=== PATIENT | male | born 2000 | race Caucasian/White ===

== ENCOUNTER 2020-12-07 07:54 | Observation (INO) ==
[2020-12-07 08:19] LABS: Appearance Urine Clear (Clear); Bacteria Urine Automated Negative (Negative); Bilirubin Urine Negative (Negative); Blood Urine 3+ (Negative); Color Urine Orange; Glucose Urine UA Negative (Negative); Ketones Urine Trace (Negative); Leukocyte Esterase Urine 1+ (Negative); Nitrite Urine Negative (Negative); Protein Urine 1+ (Negative); RBC Urine Automated >30 /hpf (0-4); Specific Gravity Urine 1.023 (1.000-1.030); Urobilinogen Urine Negative (Negative); pH Urine 5.5 (4.5-7.5)
[2020-12-07] MEDS ORDERED: TAMSULOSIN HCL 0.4 MG CAP PO ONE (08:32)
[2020-12-07] MEDS ORDERED: HYDROmorphone INJ 0.5 MG/0.5 ML SYR IV STA ×2 (08:32→08:58)
[2020-12-07] MEDS ORDERED: SODIUM CHLORIDE 0.9% 1000ML 1,000 ML IV ONE (08:32)
[2020-12-07] MEDS ORDERED: KETOROLAC TROMETHAMINE 15 MG/ML VIAL IV ONE (08:32)
[2020-12-07] MEDS ORDERED: ONDANSETRON INJ 2 MG/ML 2 ML VIAL IV STA (08:32)
[2020-12-07 08:43] LABS: Hematocrit (blood only) 46.5 % (42-52); Hemoglobin 16.9 g/dL (14.0-18.0); Mean Corpuscular Hemoglobin 32.4 pg (25-34); Mean Corpuscular Hgb Conc 36.3 g/dL (32-36); Mean Corpuscular Volume 89.3 fL (80-100); Mean Platelet Volume 9.1 fL (7.4-10.4); Platelet Count 310 K/uL (130-400); RDW Coefficient of Variation 12.3 % (11.5-14.5); RDW Standard Deviation 39.9 fL (36.4-46.3); Red Blood Count 5.21 M/uL (4.7-6.1); White Blood Count 5.97 K/uL (4.8-10.8)
[2020-12-07 08:59] LABS: BUN Creatinine Ratio 15.1 (10-20); Calcium 9.8 mg/dl (8.5-10.1); Creatinine Clr Calc Pharmacy 126.6 ml/min; Est GFR (Non-African American) 124.2 ml/min; Potassium 3.9 mmol/L (3.5-5.1)
--- NOTE | 2020-12-07 09:11 | Emergency Department Note ---
History of Present Illness General Chief complaint: Kidney Stone Stated complaint: LEFT SIDED KIDNEY Time Seen by Provider: 12/07/20 08:27 Source: patient Mode of arrival: ambulatory Limitations: no limitations History of Present Illness Provider complaint: Left flank pain Onset (ago): hour(s) 2 Location: back Radiation: flank Severity: severe Maximum Pain Intensity: 10 Quality: + stabbing Associated symptoms: + nausea/vomiting Patient is a 19 yo male with PMHx of nephrolithiasis who presents to the ED with complaint of severe back/flank pain. Patient was evaluated in the ED 3 days ago and diagnosed with a "mild left-sided hydroureteronephrosis secondary to an obstructing 4 mm calculus of the distal left ureter." He was discharged home wit h oxy 5mg po prn for pain. Patient states that he was managing the pain fairly well but this AM at 0700 he awoke abruptly from sleep with severe back pain and left flank pain. Pain is rated at a 10/10 and described as a "knife stabbing me in the back." He has had associated nausea and vomiting since 0700 with current episode of pain. Difficulty with urination and + hematuria. Patient tried to take 10mg oxycodone but immediately had emesis. Has not been able to control the pain. He denies fever, chills, CP, SOB. States that this is reminiscent of prior hx of kidney stones; previously required hospitalization at [facility]-3 years ago for stone; has had total of 4-5 stones in lifetime, 2 of which (including current episode) have required ED/hospital level care. Home Medications Medication Instructions Recorded Confirmed Type omeprazole 40 mg capsule,delayed 40 mg PO QAM 12/04/20 12/07/20 History release ondansetron HCl 4 mg tablet 4 mg PO Q6H PRN 5 Days #20 tab 12/08/20 Rx (Zofran) oxycodone 5 mg tablet 5 mg PO Q6H PRN #10 tab 12/08/20 Rx tamsulosin 0.4 mg capsule 0.4 mg PO QAM 30 Days #30 cap 12/08/20 Rx Allergies Allergy/AdvReac Type Severity Reaction Status Date / Time No Known Allergies Allergy Unverified 12/07/20 10:33 Past Med/Surg History Medical History Kidney calculus Surgical History No pertinent past surgical history Social History Smoking Status: Never smoker Hx Alcohol Use: No Hx Substance Use: No Preferred Language: Georgian Communication Ability: Effective Business Administrator Required: No Beliefs That Will Affect Care: None marital status: Single Current Living Situation: Other Current Living Situation Comment: room mates current occupational status: student Feels Safe at Home: Yes Assistive Devices: None Review of Systems See HPI for pertinent positives & negatives. and A total of 10 systems reviewed and were otherwise negative Constitutional: no fever and no chills Eyes: no problem reported Ear, Nose, Mouth, Throat: no problem reported Respiratory: no cough and no dyspnea Cardiovascular: no chest pain Gastrointestinal: + abdominal pain, + nausea and + vomiting Genitourinary (Male): + dysuria, + hematuria and + flank pain Musculoskeletal: no problem reported Integumentary: no problem reported Neurologic: no syncope and no headache(s) Psychiatric: no problem reported Physical Exam Vital Signs Vital Signs - 24 hr 12/07/20 08:04 12/07/20 11:11 Temperature 37.0 C Temperature Source Oral Pulse Rate 114 H 69 Pulse Rate from SpO2 Sensor 70 Respiratory Rate 16 22 Blood Pressure 134/97 143/100 H Blood Pressure Mean 109 114 Pulse Oximetry 93 98 Oxygen Delivery Method Room Air Room Air Sepsis Recent Fever Within 48 Hours No Sepsis New/Unexplained Change in Mental Status No Sepsis Action Taken by Nursing No Action Required GENERAL: Moderate distress secondary to pain; writhing in bed unable to get in comfortable position. Well developed and well nourished. Vital signs reviewed as above. EYES: EOMI. Anicteric sclerae. HENT: Moist mucous membranes. Hearing intact bilaterally. RESPIRATORY: Clear to auscultation bilaterally. No wheezing, rales, or rhonchi. CARDIOVASCULAR: Tachycardic. Regular rhythm. No murmurs. ABDOMEN: Soft. Diffuse tenderness most prominent in LLQ. + left flank pain/CVA tenderness to palpation. Normal bowel sounds. EXTREMITIES: No edema. Non-tender. SKIN: Warm, dry. No rashes or lesions. NEUROLOGIC: A/O x3. No focal neurological deficits. PSYCHIATRIC: Cooperative. Appropriate mood and affect. Course Administered Medications Discontinued Medications Hydromorphone HCl (Hydromorphone Inj 0.5 Mg/0.5 Ml Syr) 0.5 mg IV NOW STA Stop: 12/07/20 08:33 Last Admin: 12/07/20 08:38 Dose: 0.5 mg Documented by: [id number] Hydromorphone HCl (Hydromorphone Inj 0.5 Mg/0.5 Ml Syr) 0.5 mg IV NOW STA Stop: 12/07/20 08:59 Last Admin: 12/07/20 09:04 Dose: 0.5 mg Documented by: [id number] Sodium Chloride (Nss 1000ml) 1,000 mls @ 999 mls/hr IV .Q1H1M ONE Stop: 12/07/20 09:32 Last Infusion: 12/07/20 09:42 Dose: 0 mls/hr Documented by: [id number] Admin: 12/07/20 08:41 Dose: 999 mls/hr Documented by: [id number] Lactated Ringer's (Lr) 1,000 mls @ 125 mls/hr IV .Q8H SIMON Stop: 01/06/21 11:59 Last Admin: 12/08/20 11:15 Dose: 125 mls/hr Documented by: [id number] Infusion: 12/08/20 11:15 Dose: 125 mls/hr Documented by: [id number] Infusion: 12/08/20 06:17 Dose: 125 mls/hr Documented by: [id number] Admin: 12/08/20 01:50 Dose: 125 mls/hr Documented by: [id number] Infusion: 12/08/20 01:21 Dose: 125 mls/hr Documented by: [id number] Admin: 12/07/20 17:21 Dose: 125 mls/hr Documented by: [id number] Infusion: 12/07/20 17:21 Dose: 125 mls/hr Documented by: [id number] Admin: 12/07/20 12:01 Dose: 125 mls/hr Documented by: [id number] Ketorolac Tromethamine (Ketorolac Tromethamine 15 Mg/Ml Vial) 10 mg IV NOW ONE Stop: 12/07/20 08:33 Last Admin: 12/07/20 08:39 Dose: 10 mg Documented by: [id number] Ketorolac Tromethamine (Ketorolac 30 Mg/Ml Vial) 30 mg IV Q6H PRN PRN Reason: Moderate Pain Stop: 12/12/20 13:45 Last Admin: 12/08/20 09:18 Dose: 30 mg Documented by: [id number] Admin: 12/08/20 02:02 Dose: 30 mg Documented by: [id number] Admin: 12/07/20 14:56 Dose: 30 mg Documented by: [id number] Morphine Sulfate (Morphine Sulfate 4 Mg/Ml 1 Ml Carp\\Vial) 4 mg IV NOW STA Stop: 12/07/20 09:39 Last Admin: 12/07/20 09:54 Dose: 4 mg Documented by: [id number] Morphine Sulfate (Morphine Sulfate 2 Mg/Ml Carp) 2 mg IV NOW STA Stop: 12/07/20 11:51 Last Admin: 12/07/20 12:01 Dose: 2 mg Documented by: [id number] Morphine Sulfate (Morphine Sulfate 4 Mg/Ml 1 Ml Carp\\Vial) 4 mg IV Q4H PRN PRN Reason: severe pain Stop: 12/21/20 13:45 Last Admin: 12/08/20 06:15 Dose: 4 mg Documented by: [id number] Admin: 12/08/20 02:25 Dose: 4 mg Documented by: [id number] Admin: 12/07/20 13:58 Dose: 4 mg Documented by: [id number] Ondansetron HCl (Ondansetron Inj 2 Mg/Ml 2 Ml Vial) 4 mg IV NOW STA Stop: 12/07/20 08:33 Last Admin: 12/07/20 08:38 Dose: 4 mg Documented by: [id number] Ondansetron HCl (Ondansetron Inj 2 Mg/Ml 2 Ml Vial) 4 mg IV Q6H PRN PRN Reason: Nausea Stop: 01/06/21 13:45 Last Admin: 12/07/20 14:56 Dose: 4 mg Documented by: [id number] Pantoprazole Sodium (Pantoprazole 40 Mg Tab) [facility] [place] Stop: 01/07/21 08:59 Last Admin: 12/08/20 02:28 Dose: 40 mg Documented by: [id number] Tamsulosin HCl (Tamsulosin Hcl 0.4 Mg Cap) 0.4 mg PO NOW ONE Stop: 12/07/20 08:33 Last Admin: 12/07/20 08:43 Dose: 0.4 mg Documented by: [id number] Tamsulosin HCl (Tamsulosin Hcl 0.4 Mg Cap) 0.4 mg PO QAM [facility] Stop: 01/07/21 08:59 Last Admin: 12/08/20 09:18 Dose: 0.4 mg Documented by: [id number] Medical Decision Making Differential Diagnosis Renal colic, UTI, appendicitis, diverticulitis, mesenteric ischemia, aortic pathology, infections, inflammatory bowel disease, PUD, biliary pathology, as well as other pathologies. Medical Records Attestation: I reviewed the patient's medical records. Home Medications Current Medication List: was personally reviewed by me Laboratory Data Attestation: I reviewed the patient's lab results. Result diagrams: 12/08/20 07:08 12/08/20 07:08 Lab Results 12/07/20 12/07/20 12/07/20 Range/Units 08:07 08:20 08:20 WBC 5.97 (4.8-10.8) K/uL RBC 5.21 (4.7-6.1) M/uL Hgb 16.9 (14.0-18.0) g/dL Hct 46.5 (42-52) % MCV 89.3 (80-100) fL MCH 32.4 (25-34) pg MCHC 36.3 H (32-36) g/dL RDW Std Deviation 39.9 (36.4-46.3) fL RDW Coeff of Theresa 12.3 (11.5-14.5) % Plt Count 310 (130-400) K/uL MPV 9.1 (7.4-10.4) fL Sodium 140 (136-145) mmol/L Potassium 3.9 (3.5-5.1) mmol/L Chloride 104 (98-107) mmol/L Carbon Dioxide 26 (21-32) mmol/L Anion Gap 10.0 (3-11) BUN 13 (7-18) mg/dl Creatinine 0.87 (0.6-1.4) mg/dl Est Cr Clr Drug Dosing 126.6 ml/min Est GFR ( Amer) 144.0 ml/min Est GFR (Non-Af Amer) 124.2 ml/min BUN/Creatinine Ratio 15.1 (10-20) Glucose 108 H (70-99) mg/dl Calcium 9.8 (8.5-10.1) mg/dl Urine Color [place] Urine Appearance Clear (Clear) Urine pH 5.5 (4.5-7.5) Ur Specific [place] 1.023 (1.000-1.030) Urine Protein 1+ H (Negative) Urine Glucose (UA) Negative (Negative) Urine Ketones Trace H (Negative) Urine Blood 3+ H (Negative) Urine Nitrite Negative (Negative) Urine Bilirubin Negative (Negative) Urine Urobilinogen Negative (Negative) Ur Leukocyte Esterase 1+ H (Negative) Urine WBC (Auto) 1-5 (0-5) /hpf Urine RBC (Auto) >30 H (0-4) /hpf U Hyaline Cast (Auto) 1-5 (0-5) /lpf U Epithel Cells (Auto) 10-20 H (0-5) /lpf Urine Bacteria (Auto) Negative (Negative) COVID-19 Eval Order SARS-CoV-2 (PCR) (Negative) 12/07/20 12/07/20 Range/Units 11:27 11:27 WBC (4.8-10.8) K/uL RBC (4.7-6.1) M/uL Hgb (14.0-18.0) g/dL Hct (42-52) % MCV (80-100) fL MCH (25-34) pg MCHC (32-36) g/dL RDW Std Deviation (36.4-46.3) fL RDW Coeff of Theresa (11.5-14.5) % Plt Count (130-400) K/uL MPV (7.4-10.4) fL Sodium (136-145) mmol/L Potassium (3.5-5.1) mmol/L Chloride (98-107) mmol/L Carbon Dioxide (21-32) mmol/L Anion Gap (3-11) BUN (7-18) mg/dl Creatinine (0.6-1.4) mg/dl Est Cr Clr Drug Dosing ml/min Est GFR ( Amer) ml/min Est GFR (Non-Af Amer) ml/min BUN/Creatinine Ratio (10-20) Glucose (70-99) mg/dl Calcium (8.5-10.1) mg/dl Urine Color Urine Appearance (Clear) Urine pH (4.5-7.5) Ur Specific [place] (1.000-1.030) Urine Protein (Negative) Urine Glucose (UA) (Negative) Urine Ketones (Negative) Urine Blood (Negative) Urine Nitrite (Negative) Urine Bilirubin (Negative) Urine Urobilinogen (Negative) Ur Leukocyte Esterase (Negative) Urine WBC (Auto) (0-5) /hpf Urine RBC (Auto) (0-4) /hpf U Hyaline Cast (Auto) (0-5) /lpf U Epithel Cells (Auto) (0-5) /lpf Urine Bacteria (Auto) (Negative) COVID-19 Eval Order Covid19 at [facility] SARS-CoV-2 (PCR) NEGATIVE (Negative) Imaging Data Radiologist's Impression: KUB X-Ray 12/07/20 08:32 KUB CLINICAL HISTORY: Kidney stone. COMPARISON STUDY: CT of the abdomen and pelvis December 04, 2020. FINDINGS: The 4 mm distal left ureteral calculus shown on CT of December 04, 2020 is not visualized on this exam although may be occult by radiography. No urinary calculi are identified. There is no evidence for a bowel obstruction. IMPRESSION: Nonvisualization of the 4 mm distal left ureteral calculus shown on prior CT. However, this calculus could be occult by radiography. ACT 112: Negative or not required by law. Electronically signed by: Gee Fleming M.D. 12/07/2020 9:22 AM Renal Ultrasound 12/07/20 09:38 ULTRASOUND KIDNEYS AND BLADDER CLINICAL HISTORY: Left flank pain. Known ureteral stone. COMPARISON STUDY: Abdominal CT dated 12/04/2020. TECHNIQUE: Real-time, grayscale, and color flow sonography of the kidneys and bladder is performed. Images are reviewed in the transverse and longitudinal planes. FINDINGS: Kidneys: The kidneys are normal in size and echotexture. The right kidney measures 1.6 cm in length and the left kidney measures 11.5 cm in length. There is mild left hydroureteronephrosis. No hydronephrosis is seen on the right. No shadowing renal calculi are identified in either kidney. There is no sonographic evidence of contour deforming renal mass lesion. No perinephric fluid is identified. Bladder: The partially distended bladder is normal in appearance. Only the right ureteral jet was seen. A 4 mm calculus is seen just above the left vesicoure teral junction. IMPRESSION: 1. There is mild left hydroureteronephrosis secondary to a 4 mm calculus just above the vesicoureteral junction. 2. No hydronephrosis is seen on the right. ACT 112: Negative or not required by law. Electronically signed by: Rio Smith M.D. 12/07/2020 10:43 AM Blood Pressure Blood Pressure Findings: Normal blood pressure Blood Pressure Disposition: did not require urgent referral MDM Narrative This patient was evaluated and appeared to be in significant discomfort. IV access was obtained and laboratory work was drawn. Patient was hydrated with normal saline solution, given IV Dilaudid and Zofran for his discomfort. CT imaging of the abdomen and pelvis was performed and reveals a 4 mm distal ureteral calculus. There is mild hydronephrosis. There is no evidence of UTI. Patient's pain was uncontrolled with 2 doses of IV Dilaudid and he requested morphine. This did help control the patient's pain a bit better. IV Toradol was administered as well as Flomax. Upon my evaluation of the patient he was resting reasonably comfortably. Consultation with hospitalist service and urology was placed. Patient will be evaluated for further management. He was made aware of the plan and agreed as this is the patient's second visit and the stone has not moved on KUB. Impression & Plan Renal colic on left side, Ureterolithiasis Discharge Plan Visit Data Chief Complaint: Kidney Stone Stated Complaint: LEFT SIDED KIDNEY ED Provider: Dior Lainez ED Midlevel Provider: Torrie Soni Discharge Problem: Renal colic on left side, Ureterolithiasis Patient Disposition: Admitted As Inpatient Condition: Fair Discharge Instructions Interventions: ED Discharge Assessment Last Done: 12/07/20 13:50 Resident Activity Tracking Resident Involvement: Resident Care Provided Care Provided: Pediatric Care ED
--- NOTE | 2020-12-07 09:23 | XRay Report ---
KUB CLINICAL HISTORY: Kidney stone. COMPARISON STUDY: CT of the abdomen and pelvis December 04, 2020. FINDINGS: The 4 mm distal left ureteral calculus shown on CT of December 04, 2020 is not visualized on this exam although may be occult by radiography. No urinary calculi are identified. There is no evide nce for a bowel obstruction. IMPRESSION: Nonvisualization of the 4 mm distal left ureteral calculus shown on prior CT. However, t his calculus could be occult by radiography. ACT 112: Negative or not required by law. Electronically signed by: Gee Fleming M.D. 12/07/2020 9:22 AM
[2020-12-07] MEDS ORDERED: MoRPHine SULFATE 4 MG/ML 1 ML CARP\\VIAL IV STA (09:38)
--- NOTE | 2020-12-07 10:45 | Ultrasound Report ---
ULTRASOUND KIDNEYS AND BLADDER CLINICAL HISTORY: Left flank pain. Known ureteral stone. COMPARISON STUDY: Abdominal CT dated 12/04/2020. TECHNIQUE: Real-time, grayscale, and color flow sonography of the kidneys and bladder is performed. I mages are reviewed in the transverse and longitudinal planes. FINDINGS: Kidneys: The kidneys are normal in size and echotexture. The right kidney measures 1.6 cm in length a nd the left kidney measures 11.5 cm in length. There is mild left hydroureteronephrosis. No hydroneph rosis is seen on the right. No shadowing renal calculi are identified in either kidney. There is no s onographic evidence of contour deforming renal mass lesion. No perinephric fluid is identified. Bladder: The partially distended bladder is normal in appearance. Only the right ureteral jet was see n. A 4 mm calculus is seen just above the left vesicoureteral junction. IMPRESSION: 1. There is mild left hydroureteronephrosis secondary to a 4 mm calculus just above the vesicouretera l junction. 2. No hydronephrosis is seen on the right. ACT 112: Negative or not required by law. Electronically signed by: Rio Smith M.D. 12/07/2020 10:43 AM
[2020-12-07] MEDS ORDERED: MoRPHine SULFATE 2 MG/ML CARP IV STA (11:50)
[2020-12-07] MEDS: LACTATED RINGER'S 1,000 ML IV SCH ×2 (12:01→17:21)
--- NOTE | 2020-12-07 12:16 | History & Physical Report ---
Date of Service December 07, 2020 Assessment & Plan (1) Ureterolithiasis: (2) Renal colic on left side: Plan: 19 M with hx of nephrolithiasis who initially presented to ED on 12/04 and dx with L distal ureteral stone. Presents today with severe pain and inability to manage symptoms at home. He is a college student. No signs of SIRS/SEPSIS or DEMETRICE. US reveals: here is mild left hydroureteronephrosis secondary to a 4 mm calculus just above the vesicoureteral junction. admit to med/surg remain NPO until seen and eval by urology consult urology flomax 0.4mg daily IVF LR @ 125cc/hr IV morphine 4mg severe pain; IV toradol 30mg q6h moderate pain strain all urine DVT ppx: none Dispo:med surg PCP: none, Student FULL CODE Pt was seen and examined in collaboration with Dr. Samuel, please see addendum History of Present Illness Chief Complaint: L sided low back pain. Primary Care Provider: NO PCP This is a 19-year-old male who has significant past medical history of nephrolithiasis and is a college student at [employer] who presents to ED secondary to left-sided low back pain. Of significance patient was seen in ED on 12/04/2020 due to sharp left flank pain. He underwent CT abdomen pelvis which revealed mild left hydronephrosis and hydroureter down to 3 mm calculus in the distal left ureter 1 cm from the ureterovesicular junction. His pain was controlled and recommended to follow-up if symptoms do not improve. He was discharged home with oral pain medication. He states over the last 2 days his symptoms have waxed and waned. However, when he woke up this morning he had severe left flank and low back pain. He describes it as, "being stabbed by a knife." His pain is currently greater than a 10 out of 10, nothing makes it better and nothing makes it worse, is associated with decreased urination and nausea. On initial presentation he had hematuria, but he states this is since resolved. He now is no longer, "peeing as much." He has tried oral oxycodone without improvement. He denies any fever, chills, sweats, lightheadedness, dizziness, chest pain, shortness of breath, cough, URI symptoms, emesis, dysuria, increased urinary urgency, melena or hematochezia. He does have prior history of kidney stone that did not require surgical intervention. In ED patient remained hemodynamically stable. His CBC and CMP was generally unremarkable. His urinalysis was consistent with blood. Renal ultrasound confirms a 4 mm calculus just above the vesiculoureteral junction with mild left hydronephrosis. Allergies Allergy/AdvReac Type Severity Reaction Status Date / Time No Known Allergies Allergy Unverified 12/07/20 10:33 Home Medications Medication Instructions Recorded Confirmed Type omeprazole 40 mg capsule,delayed 40 mg PO QAM 12/04/20 12/07/20 History release Past Med/Surg History Medical History Kidney calculus Surgical History No pertinent past surgical history Social History Smoking Status: Never smoker Hx Alcohol Use: No Preferred Language: Turkmen marital status: Single current occupational status: student Feels Safe at Home: Yes Review of Systems Review of Systems: All systems reviewed & are unremarkable except as noted in HPI & below Physical Exam Physical Exam: Constitutional: WD/WN, M, +acute distress, +Pain, tearful, vitals as above, NAD, sitting up in bed Head: Normocephalic, Atraumatic Eyes: PERRL, conjunctivae normal, anicteric sclerae ENMT: external ear and nose normal, oropharynx normal Neck: trachea midline, no thyromegaly normal visual inspection Respiratory: normal respiratory effort, lungs clear to auscultation, no wheeze, rales, rhonchi. Normal insp/exp effort, no accessory muscle use Cardiovascular: RRR, no murmur, no edema Vessels: no JVD or carotid bruit Chest: normal inspection of chest Abdomen: normal bowel sounds, soft, nontender, no hepatosplenomegaly +cva tenderness, L Musculoskeletal: no cyanosis or clubbing, extremities motor strength 5/5 Skin: no rashes, warm and dry normal turgor Neurologic: PERRL, EOMI, accommodation nl, no face palsy, no dysarthria CN's II-XI intact bilaterally and moves all extremities Psychiatric: A+Ox3, euthymic affect Lymphatic: no cervical or axillary lymphadenopathy : deferred Results & Data Results & Data ([facility]) Vital Signs (Past 12 Hours) Vital Signs Temp Pulse Resp BP Pulse Ox 12/07/20 11:11 69 22 143/100 H 98 12/07/20 08:04 37.0 C 114 H 16 134/97 93 Diagnostic Findings KUB X-Ray 12/07/20 08:32 KUB CLINICAL HISTORY: Kidney stone. COMPARISON STUDY: CT of the abdomen and pelvis December 04, 2020. FINDINGS: The 4 mm distal left ureteral calculus shown on CT of December 04, 2020 is not visualized on this exam although may be occult by radiography. No urinary calculi are identified. There is no evidence for a bowel obstruction. IMPRESSION: Nonvisualization of the 4 mm distal left ureteral calculus shown on prior CT. However, this calculus could be occult by radiography. ACT 112: Negative or not required by law. Electronically signed by: Gee Fleming M.D. 12/07/2020 9:22 AM Renal Ultrasound 12/07/20 09:38 ULTRASOUND KIDNEYS AND BLADDER CLINICAL HISTORY: Left flank pain. Known ureteral stone. COMPARISON STUDY: Abdominal CT dated 12/04/2020. TECHNIQUE: Real-time, grayscale, and color flow sonography of the kidneys and bladder is performed. Images are reviewed in the transverse and longitudinal planes. FINDINGS: Kidneys: The kidneys are normal in size and echotexture. The right kidney measures 1.6 cm in length and the left kidney measures 11.5 cm in length. There is mild left hydroureteronephrosis. No hydronephrosis is seen on the right. No shadowing renal calculi are identified in either kidney. There is no sonographic evidence of contour deforming renal mass lesion. No perinephric fluid is identified. Bladder: The partially distended bladder is normal in appearance. Only the right ureteral jet was seen. A 4 mm calculus is seen just above the left vesicoureteral junction. IMPRESSION: 1. There is mild left hydroureteronephrosis secondary to a 4 mm calculus just above the vesicoureteral junction. 2. No hydronephrosis is seen on the right. ACT 112: Negative or not required by law. Electronically signed by: Rio Smith M.D. 12/07/2020 10:43 AM Medications Administered Medication List Lactated Ringer's (Lr) 1,000 mls @ 125 mls/hr IV .Q8H SIMON Stop: 01/06/21 11:59 Last Admin: 12/07/20 12:01 Dose: 125 mls/hr Documented by: [id number] Discontinued Medications Hydromorphone HCl (Hydromorphone Inj 0.5 Mg/0.5 Ml Syr) 0.5 mg IV NOW STA Stop: 12/07/20 08:33 Last Admin: 12/07/20 08:38 Dose: 0.5 mg Documented by: [id number] Hydromorphone HCl (Hydromorphone Inj 0.5 Mg/0.5 Ml Syr) 0.5 mg IV NOW STA Stop: 12/07/20 08:59 Last Admin: 12/07/20 09:04 Dose: 0.5 mg Documented by: [id number] Sodium Chloride (Nss 1000ml) 1,000 mls @ 999 mls/hr IV .Q1H1M ONE Stop: 12/07/20 09:32 Last Infusion: 12/07/20 09:42 Dose: 0 mls/hr Documented by: [id number] Admin: 12/07/20 08:41 Dose: 999 mls/hr Documented by: [id number] Ketorolac Tromethamine (Ketorolac Tromethamine 15 Mg/Ml Vial) 10 mg IV NOW ONE Stop: 12/07/20 08:33 Last Admin: 12/07/20 08:39 Dose: 10 mg Documented by: [id number] Morphine Sulfate (Morphine Sulfate 4 Mg/Ml 1 Ml Carp\\Vial) 4 mg IV NOW STA Stop: 12/07/20 09:39 Last Admin: 12/07/20 09:54 Dose: 4 mg Documented by: [id number] Morphine Sulfate (Morphine Sulfate 2 Mg/Ml Carp) 2 mg IV NOW STA Stop: 12/07/20 11:51 Last Admin: 12/07/20 12:01 Dose: 2 mg Documented by: [id number] Ondansetron HCl (Ondansetron Inj 2 Mg/Ml 2 Ml Vial) 4 mg IV NOW STA Stop: 12/07/20 08:33 Last Admin: 12/07/20 08:38 Dose: 4 mg Documented by: [id number] Tamsulosin HCl (Tamsulosin Hcl 0.4 Mg Cap) 0.4 mg PO NOW ONE Stop: 12/07/20 08:33 Last Admin: 12/07/20 08:43 Dose: 0.4 mg Documented by: [id number] COVID-19 Results Results COVID-19 Adm Lab Results: RBC 5.21 M/uL (4.7-6.1) 12/07/20 WBC 5.97 K/uL (4.8-10.8) 12/07/20 Hgb 16.9 g/dL (14.0-18.0) 12/07/20 Hct 46.5 % (42-52) 12/07/20 Plt Count 310 K/uL (130-400) 12/07/20 Na 140 mmol/L (136-145) 12/07/20 K 3.9 mmol/L (3.5-5.1) 12/07/20 Cl 104 mmol/L (98-107) 12/07/20 CO2 26 mmol/L (21-32) 12/07/20 Anion Gap 10.0 (3-11) 12/07/20 BUN 13 mg/dl (7-18) 12/07/20 Creatinine 0.87 mg/dl (0.6-1.4) 12/07/20 BUN/Creatinine Ratio 15.1 (10-20) 12/07/20 Glucose Level 108 mg/dl (70-99) H 12/07/20 Ca 9.8 mg/dl (8.5-10.1) 12/07/20 COVID-19 PCR NEGATIVE (Negative) 12/07/20 Code Status & VTE Plan Code Status Full Code VTE Prophylaxis Plan VTE Prophylaxis will be ordered: No Supervising Physician Co-Signing Physician Notes Attending addendum The patient was seen and examined in medical floor He was admitted with left renal colic noted to have a 4 mg millimeters stone in the distal ureter with mild hydronephrosis Has been feeling a little better but he still has the pain On examination Acute distress with minimal pain Hemodynamically stable Chestclear to auscultate bilaterally HeartS1-S2 regular Abdomen-no tenderness in the renal angle, mildly tender in the left lower quadrant, bowel sound present Extremities-negative for any edema Admission labs, imaging studies reviewed Has 4 mm left distal ureter stone with mild hydronephrosis Appreciate urology input and recommendation Agree with assessment and plan as outlined above by ANA An DR
--- NOTE | 2020-12-07 12:55 | Urology Consultation ---
Date of Consultation December 07, 2020 Assessment & Plan (1) Ureterolithiasis: 19 year old male admitted with worsening left flank pain secondary to known 4 mm left distal ureteral calculus with mild hydronephrosis. - Afebrile, nontoxic, creatinine and WBC within normal limits - UA not suggestive of infection, no urine culture pending at this time - Imaging reviewed - 4 mm left distal ureteral calculus, mild hydronephrosis - Discussed options for stone management including trial of passage vs surgical intervention with URS-LL/stent while inpatient - Discusses option for outpatient ESWL though discussed that we are unable to visualize stone on today's KUB - Procedures, success rates, risks, benefits and clinical courses reviewed. - Ureteral stents were discussed as well as post-operative course and pain management - Patient elects trial of passage for now - Okay to have diet today and make NPO again at midnight - Strain all urine, send stone for analysis if he passes it - Continue hydration, Tamsulosin, supportive care and management per primary service Please consult our service urgently if patient develops fever >101F, intractable pain or nausea, as this will necessitate urgent surgical intervention. Thank you for the consultation and we will continue to monitor closely with primary service. Supervising Physician Co-Signing Physician Notes Pt seen with mother and options including trial of passage ,ESWL Saturday if the stone can be visualized and ureteroscopy reviewed . Pt with moderate pain. They will consider options and stay NPO tonite History of Present Illness Reason for Consultation: left ureteral stone History of Present Illness 19 year old male with past medical history significant for nephrolithiasis who presented to emergency department with worsening left flank pain secondary to known 4 mm left distal ureteral calculus with mild hydronephrosis. Patient initially presented to [facility] ED on 12/04/20 with left flank pain. CTAP demonstrated 4 mm left distal ureteral stone with mild hydronephrosis. He was afebrile, creatinine and WBC within normal limits. He was discharged to home with oxycodone for prn pain management. Unfortunately he returned to ED on 12/07/20 with worsening left flank pain with associated nausea and vomiting that started abruptly this morning prior to arrival. Afebrile on arrival. Lab work showed creatinine and 0.87 and WBC 5.97. Urinalysis 1+ leukocytes, >30 RBCs, 1-5 WBCs, 10-20 epithelials, negative for nitrates and bacteria. No urine culture pending at this time. He had a KUB which showed nonvisualization of left distal ureteral calculus. JOSE demonstrated mild left hydronephrosis secondary to 4 mm stone just above the UVJ. He was treated with IV Hydromorphone, Morphine, Ketorolac, Ondansetron, Tamsulosin, and IV Fluids in ER. He was admitted to hospital medicine service for further management. Our service is consulted for left ureteral calculus. Patient was seen and examined in ER. He is awake and resting in litter. He continues to have left flank pain radiating to left abdomen and groin, but currently tolerable. Reports pain has improved since arrival, notes relief from IV Morphine. He is voiding, no dysuria. Reports hematuria, but has cleared. No nausea or vomiting at present. He denies fever or chills. Hx of prior kidney stones. Previously required hospitalization at [facility]. He has spontaneously passed his stones in the past. He is unsure of his stone composition. No prior surgical intervention for stones. Family history of stones - grandparents. No additional concerns today. Allergies Allergy/AdvReac Type Severity Reaction Status Date / Time No Known Allergies Allergy Unverified 12/07/20 10:33 Home Medications Medication Instructions Recorded Confirmed Type omeprazole 40 mg capsule,delayed 40 mg PO QAM 12/04/20 12/07/20 History release Patient History Medical History Kidney calculus Surgical History No pertinent past surgical history Social History Smoking Status: Never smoker Hx Alcohol Use: No Preferred Language: Algerian marital status: Single current occupational status: student Feels Safe at Home: Yes Review of Systems Review of Systems: All systems reviewed & are unremarkable except as noted in HPI & below Constitutional: as per Subjective / HPI Gastrointestinal: as per Subjective / HPI Genitourinary: + as per Subjective / HPI Physical Exam Constitutional: well developed and well nourished; not ill appearing appears uncomfortable at times during interview, but no acute distress Respiratory: normal respiratory effort and able to speak in complete sentences; no respiratory distress and no labored breathing Cardiovascular: Extremities: no pedal edema Gastrointestinal (Abdomen): Inspection/Auscultation: abdomen normal to inspection; abdomen not distended Percussion/Palpation: abdomen soft; abdomen nontender and no guarding Neurologic: moves all extremities and awake Psychiatric: Orientation: alert, oriented x 3 and cooperative Genitourinary: no CVA tenderness Results & Data ([facility]) Vital Signs (Past 12 Hours) Vital Signs Temp Pulse Resp BP Pulse Ox 12/07/20 12:30 125/72 95 12/07/20 12:00 145/95 H 100 12/07/20 11:57 98 12/07/20 11:11 69 22 143/100 H 98 12/07/20 08:04 37.0 C 114 H 16 134/97 93 PG Care Time/CCT Total # of Minutes Spent Total Time Spent with Patient: Total time spent is greater than 50% in coordination of care (as documented) at patient's floor/unit and/or counseling patient: Coding Level of Care Code 71123 Inpt Consult Level 3 Diagnoses Ureterolithiasis N20.1
[2020-12-07] MEDS ORDERED: POLYETHYLENE (MIRALAX) 17 GM PACK PO PRN (13:46)
[2020-12-07] MEDS ORDERED: LACTATED RINGER'S 1,000 ML IV SCH (13:46)
[2020-12-07] MEDS ORDERED: ONDANSETRON INJ 2 MG/ML 2 ML VIAL IV PRN (13:46)
[2020-12-07] MEDS ORDERED: ALUMINUM/MAGNESIUM SUSP 30 ML UDC PO PRN (13:46)
[2020-12-07] MEDS ORDERED: MAGNESIUM HYDROXIDE SUSP 30 ML UDC PO PRN (13:46)
[2020-12-07] MEDS ORDERED: ACETAMINOPHEN 325 MG TAB PO PRN (13:46)
[2020-12-07] MEDS: MoRPHine SULFATE 4 MG/ML 1 ML CARP\\VIAL IV PRN (13:58)
[2020-12-07] MEDS: KETOROLAC 30 MG/ML VIAL IV PRN (14:56)
[2020-12-08] MEDS: LACTATED RINGER'S 1,000 ML IV SCH ×2 (01:50→11:15)
[2020-12-08] MEDS: KETOROLAC 30 MG/ML VIAL IV PRN ×2 (02:02→09:18)
[2020-12-08] MEDS: MoRPHine SULFATE 4 MG/ML 1 ML CARP\\VIAL IV PRN ×2 (02:25→06:15)
[2020-12-08 07:41] LABS: Basophils # (auto) 0.02 K/uL (0-0.2); Basophils % (auto) 0.2 %; Eosinophils # (auto) 0.13 K/uL (0-0.5); Eosinophils % (auto) 1.4 %; Hematocrit (blood only) 42.1 % (42-52); Hemoglobin 14.9 g/dL (14.0-18.0); Immature Granulocytes # (auto) 0.01 K/uL (0.00-0.02); Immature Granulocytes % (auto) 0.1 %; Lymphocytes # (auto) 1.81 K/uL (1.2-3.4); Lymphocytes % (auto) 19.7 %; Mean Corpuscular Hemoglobin 32.5 pg (25-34); Mean Corpuscular Hgb Conc 35.4 g/dL (32-36); Mean Corpuscular Volume 91.9 fL (80-100); Monocytes # (auto) 1.06 K/uL (0.11-0.59); Monocytes % (auto) 11.5 %; Neutrophils # (auto) 6.15 K/uL (1.4-6.5); Neutrophils % (auto) 67.1 %; Platelet Count 248 K/uL (130-400); RDW Coefficient of Variation 12.5 % (11.5-14.5); Red Blood Count 4.58 M/uL (4.7-6.1); White Blood Count 9.18 K/uL (4.8-10.8)
--- NOTE | 2020-12-08 07:52 | Urology Progress Note ---
Date of Service December 08, 2020 Assessment & Plan (1) Ureterolithiasis: (2) Renal colic on left side: Plan: 19 year old male admitted with worsening left flank pain secondary to known 4 mm left distal ureteral calculus with mild hydronephrosis. - Afebrile, VSS, non-toxic appearing - Labs reviewed, Wbc and creatinine stable - No stone passage noted overnight - Discussed options for stone management including trial of passage vs surgical intervention with URS-LL/stent while inpatient - Discusses possible outpatient ESWL, will repeat KUB this morning to assess for stone visualization - Procedures, success rates, risks, benefits and clinical courses reviewed - Ureteral stents were discussed as well as post-operative course and pain management - Will await KUB results and make additional recommendations at that time - Keep NPO - Strain all urine - Continue hydration, Tamsulosin, supportive care and pain management per primary service - Will continue to follow - Pt reassessed this afternoon. - KUB today noted a 4 mm radiodensity of the left hemipelvis which may correlate with the previously noted distal ureteral calculus. - Discussed options again including outpatient trial of passage vs. possible ESWL vs. cysto and stent placement. Risks/benefits of each reviewed. - Patient prefers trial of passage with possible outpatient ESWL next Saturday if he does not pass the stone before then - Reviewed in detail signs/symptoms that would warrant return to the hospital, patient verbalized an understanding. - Recommend home with Tamsulosin, prn analgesics, prn antiemetics. - Encouraged hydration and to continue straining all urine. - Ok for discharge from perspective. - Will arrange outpatient follow-up with urology service next week for continued care. - Patient agreeable to above plan, all questions were answered. Admission and Anticipated Discharge Date Admission Date: December 07, 2020 Subjective Pt examined at bedside this AM. Resting in bed on arrival. He reports intermittent left flank pain, controlled with PO medication. No fevers or chills. Denies nausea or vomiting. Has been NPO. Straining all urine with no stone passage noted. Voiding without difficulty. No hematuria or dysuria. Review of Systems Constitutional: as per Subjective / HPI Gastrointestinal: as per Subjective / HPI Genitourinary: + as per Subjective / HPI Physical Exam Constitutional: well developed and well nourished; no acute distress Respiratory: normal respiratory effort and able to speak in complete sentences; no respiratory distress and no labored breathing Gastrointestinal (Abdomen): Inspection/Auscultation: abdomen normal to inspection; abdomen not distended Percussion/Palpation: abdomen soft; abdomen nontender and no guarding Neurologic: moves all extremities and awake Psychiatric: Orientation: alert, oriented x 3 and cooperative Genitourinary: no CVA tenderness Results & Data ([facility]) Vital Signs (Past 12 Hours) Vital Signs Temp Pulse Resp BP Pulse Ox 12/07/20 22:17 36.6 C 82 16 124/78 97 PG Care Time/CCT Total # of Minutes Spent Total Time Spent with Patient: Total time spent is greater than 50% in coordination of care (as documented) at patient's floor/unit and/or counseling patient: Coding Level of Care Code 04433 Subseq Hosp Care Lvl 2 Diagnoses Ureterolithiasis N20.1 Renal colic on left side N23
[2020-12-08 08:00] LABS: BUN Creatinine Ratio 14.4 (10-20); Calcium 8.8 mg/dl (8.5-10.1); Creatinine Clr Calc Pharmacy 128.1 ml/min; Est GFR (African American) 144.7 ml/min; Est GFR (Non-African American) 124.8 ml/min; Potassium 4.3 mmol/L (3.5-5.1)
[2020-12-08] MEDS ORDERED: TAMSULOSIN HCL 0.4 MG CAP PO SCH (09:00)
[2020-12-08] MEDS ORDERED: PANTOprazole 40 MG TAB PO SCH (09:00)
--- NOTE | 2020-12-08 09:01 | XRay Report ---
KUB HISTORY: Follow up study in a patient with acute left flank pain and ureteral calculus left ureteral calculus COMPARISON: KUB 12/07/2020, CT abdomen and pelvis 12/04/2020 FINDINGS: Nonobstructive bowel gas pattern. Renal shadow is obscured by bowel gas. Moderate fecal re tention. There is a 4 mm radiodensity of the left hemipelvis No pneumoperitoneum or pneumatosis. No f racture. IMPRESSION: 4 mm radiodensity of the left hemipelvis may correlate with the previously noted distal ureteral calc ulus. Correlate with urinalysis. ACT 112: Negative or not required by law. The above report was generated using voice recognition software. It may contain grammatical, syntax o r spelling errors. Electronically signed by: Eron Ramos M.D. 12/08/2020 9:00 AM
--- NOTE | 2020-12-08 13:10 | Hospitalist Progress Note ---
Date of Service December 08, 2020 Assessment & Plan (1) Ureterolithiasis: Plan: With mild left renal hydronephrosis No evidence of infection No hematuria (2) Renal colic on left side: Plan: 19 M with hx of nephrolithiasis who initially presented to ED on 12/04 and dx with L distal ureteral stone. Presents today with severe pain and inability to manage symptoms at home. He is a college student. No signs of SIRS/SEPSIS or DEMETRICE. US reveals: here is mild left hydroureteronephrosis secondary to a 4 mm calculus just above the vesicoureteral junction. Received intravenous fluid and has been drinking more fluid without any passes of the stone He will try to drink more fluid and take pain medications to help the stone come out by itself He will have a follow-up appointment with urologist in case he needs any procedure He was discharged home this afternoon DVT ppx: none Dispo:med surg PCP: none, Student FULL CODE Admission and Anticipated Discharge Date Admission Date: December 07, 2020 Subjective 12/08/2020 The patient was seen and examined in medical floor Still has some pain at the left lower quadrant and hypogastrium Denies any back pain No fever and no chills Review of Systems Review of Systems: All systems reviewed and are unremarkable except as noted below Physical Exam Physical Exam: Constitutional: WD/WN, M, +acute distress, +Pain, tearful, vitals as above, NAD, sitting up in bed Head: Normocephalic, Atraumatic Eyes: PERRL, conjunctivae normal, anicteric sclerae ENMT: external ear and nose normal, oropharynx normal Neck: trachea midline, no thyromegaly normal visual inspection Respiratory: normal respiratory effort, lungs clear to auscultation, no wheeze, rales, rhonchi. Normal insp/exp effort, no accessory muscle use Cardiovascular: RRR, no murmur, no edema Vessels: no JVD or carotid bruit Chest: normal inspection of chest Abdomen: normal bowel sounds, soft, nontender, no hepatosplenomegaly +cva tenderness, L Musculoskeletal: no cyanosis or clubbing, extremities motor strength 5/5 Skin: no rashes, warm and dry normal turgor Neurologic: PERRL, EOMI, accommodation nl, no face palsy, no dysarthria CN's II-XI intact bilaterally and moves all extremities Psychiatric: A+Ox3, euthymic affect Lymphatic: no cervical or axillary lymphadenopathy : deferred Results & Data Results & Data ([facility]) Vital Signs (Past 12 Hours) Vital Signs Temp Pulse Resp BP Pulse Ox 12/08/20 07:59 36.8 C 83 16 122/80 99 Laboratory Results Short CBC 12/08/20 Range/Units 07:08 WBC 9.18 (4.8-10.8) K/uL Hgb 14.9 (14.0-18.0) g/dL Hct 42.1 (42-52) % Plt Count 248 (130-400) K/uL BMP 12/08/20 07:08 Sodium 140 Potassium 4.3 Chloride 106 Carbon Dioxide 29 BUN 12 Creatinine 0.86 Glucose 91 Calcium 8.8
--- NOTE | 2020-12-09 08:15 | Discharge Summary ---
Date of Service December 09, 2020 Admission HPI Per Admitting Provider This is a 19-year-old male who has significant past medical history of nephrolithiasis and is a college student at [employer] who presents to ED secondary to left-sided low back pain. Of significance patient was seen in ED on 12/04/2020 due to sharp left flank pain. He underwent CT abdomen pelvis which revealed mild left hydronephrosis and hydroureter down to 3 mm calculus in the distal left ureter 1 cm from the ureterovesicular junction. His pain was controlled and recommended to follow-up if symptoms do not improve. He was discharged home with oral pain medication. He states over the last 2 days his symptoms have waxed and waned. However, when he woke up this morning he had severe left flank and low back pain. He describes it as, "being stabbed by a knife." His pain is currently greater than a 10 out of 10, nothing makes it better and nothing makes it worse, is associated with decreased urination and nausea. On initial presentation he had hematuria, but he states this is since resolved. He now is no longer, "peeing as much." He has tried oral oxycodone without improvement. He denies any fever, chills, sweats, lightheadedness, dizziness, chest pain, shortness of breath, cough, URI symptoms, emesis, dysuria, increased urinary urgency, melena or hematochezia. He does have prior history of kidney stone that did not require surgical intervention. In ED patient remained hemodynamically stable. His CBC and CMP was generally unremarkable. His urinalysis was consistent with blood. Renal ultrasound confirms a 4 mm calculus just above the vesiculoureteral junction with mild left hydronephrosis. Admission Exam Per Admitting Provider Physical Exam: Constitutional: WD/WN, M, +acute distress, +Pain, tearful, vitals as above, NAD, sitting up in bed Head: Normocephalic, Atraumatic Eyes: PERRL, conjunctivae normal, anicteric sclerae ENMT: external ear and nose normal, oropharynx normal Neck: trachea midline, no thyromegaly normal visual inspection Respiratory: normal respiratory effort, lungs clear to auscultation, no wheeze, rales, rhonchi. Normal insp/exp effort, no accessory muscle use Cardiovascular: RRR, no murmur, no edema Vessels: no JVD or carotid bruit Chest: normal inspection of chest Abdomen: normal bowel sounds, soft, nontender, no hepatosplenomegaly +cva tenderness, L Musculoskeletal: no cyanosis or clubbing, extremities motor strength 5/5 Skin: no rashes, warm and dry normal turgor Neurologic: PERRL, EOMI, accommodation nl, no face palsy, no dysarthria CN's II-XI intact bilaterally and moves all extremities Psychiatric: A+Ox3, euthymic affect Lymphatic: no cervical or axillary lymphadenopathy : deferred Principal Diagnosis Ureterolithiasis with left renal colic Discharge Exam Constitutional: WD/WN, M, +acute distress, +Pain, tearful, vitals as above, NAD, sitting up in bed Head: Normocephalic, Atraumatic Eyes: PERRL, conjunctivae normal, anicteric sclerae ENMT: external ear and nose normal, oropharynx normal Neck: trachea midline, no thyromegaly normal visual inspection Respiratory: normal respiratory effort, lungs clear to auscultation, no wheeze, rales, rhonchi. Normal insp/exp effort, no accessory muscle use Cardiovascular: RRR, no murmur, no edema Vessels: no JVD or carotid bruit Chest: normal inspection of chest Abdomen: normal bowel sounds, soft, nontender, no hepatosplenomegaly +cva tenderness, L Musculoskeletal: no cyanosis or clubbing, extremities motor strength 5/5 Skin: no rashes, warm and dry normal turgor Neurologic: PERRL, EOMI, accommodation nl, no face palsy, no dysarthria CN's II-XI intact bilaterally and moves all extremities Psychiatric: A+Ox3, euthymic affect Lymphatic: no cervical or axillary lymphadenopathy : deferred Discharge Data Allergies Allergy/AdvReac Type Severity Reaction Status Date / Time No Known Allergies Allergy Unverified 12/07/20 10:33 Consultations 12/07/20 11:34 Consult Urology Routine 12/07/20 11:37 ED Decision to Admit Stat Ordered Studies 12/07/20 09:38 US renal/blad retro comp Stat Hospital Course (1) Ureterolithiasis: With mild left renal hydronephrosis No evidence of infection No hematuria (2) Renal colic on left side: 19 M with hx of nephrolithiasis who initially presented to ED on 12/04 and dx with L distal ureteral stone. Presents today with severe pain and inability to manage symptoms at home. He is a college student. No signs of SIRS/SEPSIS or DEMETRICE. US reveals: here is mild left hydroureteronephrosis secondary to a 4 mm calculus just above the vesicoureteral junction. Received intravenous fluid and has been drinking more fluid without any passes of the stone He will try to drink more fluid and take pain medications to help the stone come out by itself He will have a follow-up appointment with urologist in case he needs any procedure He was discharged home this afternoon DVT ppx: none Dispo:med surg PCP: none, Student FULL CODE Total Time Total Time Spent Total Time Spent (In Minutes): 35 minutes Discharge Plan Discharge Items Patient Disposition: Home - Self-Care Reason For Visit: KIDNEY STONE Discharge Diagnosis: Ureterolithiasis with left renal colic Condition on Discharge: Fair Activity: Resume your previous activity Non-emergency contact: Primary Care Provider Call non-emergency contact if: you have any medication questions and your symptoms worsen Follow-up/Referrals: Liz Vitale CRNP [Nurse Practitioner] - (Urology office will phone you with a time and date of your follow up appt) PCP,NO [Primary Care Provider] - Diet: Regular Fluids: 2000ml (8 cups) Addtl Attending Provider Instructions: Try to drink more fluid If you develop more back pain, fever with chills, please come back Keep appointment with your urologist Pending Studies at Discharge: No Stand-Alone Forms: My [facility], Opioid Pain Management, Smoking Cessation Medications and DC Order Prescriptions: New tamsulosin 0.4 mg Capsule 0.4 mg PO QAM 30 Days Qty: 30 RF: 0 oxycodone 5 mg tablet 5 mg PO Q6H PRN (Reason: pain) Qty: 10 RF: 0 ondansetron HCl [Zofran] 4 mg tablet 4 mg PO Q6H PRN (Reason: nausea and vomiting) 5 Days Qty: 20 RF: 0 Continued omeprazole 40 mg capsule,delayed release(DR/EC) 40 mg PO QAM RF: 0 Discharge Orders: Discharge Order (Routine); Ordered 12/08/20 Ordered By: Denis Young/Other Patient Handouts: Kidney Stones: Are You at Risk?, Treating Kidney Stones ..., Preventing Kidney Stones Admission Data Admit Date/Time: 12/07/20 11:34 Attending Provider: Denis Samuel Admit Provider: Denis Samuel Primary Care Provider: PCP,KAROLINA Other Providers: Luis Antonio Perdomo ; Denis Samuel Other Interventions: Discharge Summary Assessment (RN) Last Done: 12/08/20 13:31
== END 2020-12-08 14:25 | disposition home or self-care (01) ==
LOC: EDINP 07:54 → ED 07:54 → 3N 13:50